=== PATIENT | male | born 1985 | race Caucasian/White ===

== ENCOUNTER 2016-09-10 15:51 | Emergency (ER) | payer BC, OTHER ==
[~2016-09-10 15:51] MED LIST: ROCURONIUM BROMIDE INJ 50 MG/5 ML VIAL IV ONE; SUCCINYLCHOLINE CHLORIDE INJ 200 MG/10 ML VIAL ONE
[2016-09-10] MEDS ORDERED: ALBUTEROL SULFATE 0.083% NEB 2.5 MG/3 ML AMPUL NEB ONE ×2 (16:06→17:39)
[2016-09-10 16:13] LABS: HEMATOCRIT 50.5 % (37.9-51.0); HGB HCT DIFFERENCE -2.5; MEAN CORPUSCULAR HEMOGLOBIN 28.8 pg (27.0-33.4); MEAN CORPUSCULAR HGB CONC 31.7 g/dL (32.0-36.0); MEAN CORPUSCULAR VOLUME 91 fl (80-97); RED BLOOD COUNT 5.55 10^6/uL (4.35-5.55); RED CELL DISTRIBUTION WIDTH 13.3 % (11.5-14.0); WHITE BLOOD COUNT 15.6 10^3/uL (4.0-10.5)
[2016-09-10 16:21] LABS: PARTIAL THROMBOPLASTIN TIME 23.5 SEC (23.5-35.8)
--- NOTE | 2016-09-10 16:22 | ER Document Report ---
ED General - General Stated Complaint: UNRESPONSIVE Notes: This is a 31-year-old male with no significant medical history who was found down while jogging. He was found about a mile from the home by a neighbor. Paramedics state he was unresponsive and posturing. He was notably hypertensive. After interviewing the , further history is that he has been told he had elevated blood pressure in the past but that it was "no big deal". He was not taking any medication for this condition. He did recently begin a jogging and weight loss program 3 days ago. She does not know him to use any drugs or supplements. 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 He is a former [employer]. - Related Data Allergies/Adverse Reactions: No Known Allergies Allergy (Verified 09/10/16 18:07) Past Medical History - Social History Smoking Status: Never Smoker Frequency of alcohol use: None Drug Abuse: None Lives with: Spouse/Significant other Family History: Other - Negative for history of aneurysms Review of Systems - Review of Systems -: Yes ROS unobtainable due to patient's medical condition Physical Exam - Vital signs Vitals: Pulse Ox 100 09/10/16 15:54 - General General appearance: Unresponsive - HEENT Head: Atraumatic -: bilateral: Nonreactive - 4 mm sluggish Mucous membranes: Dry Neck: Normal - Respiratory Breath sounds: Normal - Cardiovascular Rhythm: Regular, Tachycardia - Abdominal Inspection: Normal Distension: No distension - Back Back: Other - no trauma visible - Extremities General upper extremity: Normal inspection General lower extremity: Normal inspection - Neurological Neuro grossly intact: No - posturing - Skin Skin Temperature: Hot Skin Moisture: Dry Skin Color: Normal Course - Re-evaluation Re-evalutation: 09/10/16 16:39 CT findings reviewed with Dr. Manzano. Call placed to [facility] for Neurosurgery and ICU. updated of findings and allowed to visit at bedside. 09/10/16 16:41 09/10/16 16:[address] Waldo Parham, also discussed with Dr. Yuen (neurosurgery). 09/10/16 18:32 pt seen and examined just prior to helicopter transport. All drips have been stopped at this time due to low blood pressure- systolic 80's. Pt is critical due to intracranial hemorrhage and impending herniation. He is relatively stable for transport considering the critical nature of his underlying condition. - Vital Signs Vital signs: Temp Pulse Resp BP Pulse Ox 99.6 F 24 H 94/53 L 91 L 09/10/16 18:55 09/10/16 18:55 09/10/16 18:55 09/10/16 18:55 - Laboratory Result Diagrams: 09/10/16 15:45 09/10/16 15:45 Laboratory results interpreted by me: 09/10/16 09/10/16 09/10/16 15:45 15:45 15:45 WBC 15.6 H MCHC 31.7 L Band Neutrophils % 2 L Abs Neuts (Manual) 9.0 H Abs Lymphs (Manual) 5.3 H Carbon Dioxide 20 L Glucose 160 H Lactic Acid 6.3 H Creatine Kinase 347 H Urine Protein Urine Ketones Urine Ascorbic Acid Salicylates Acetaminophen 09/10/16 09/10/16 16:07 16:22 WBC MCHC Band Neutrophils % Abs Neuts (Manual) Abs Lymphs (Manual) Carbon Dioxide Glucose Lactic Acid Creatine Kinase Urine Protein 100 H Urine Ketones TRACE H Urine Ascorbic Acid 40 H Salicylates < 1.0 L Acetaminophen < 10 L - EKG Interpretation by Me EKG shows normal: Sinus rhythm Rate: Tachycardia Voltage: Consistant with LVH Procedures - Intubation Orotracheal Airway evaluation: Normal anatomy Mallampati Classification: Class 1 Medications: Etomidate, Succinylcholine Intubation method: Orotracheal Blade type: Tonny Blade size: 4 ETT size: 8.0 ETT secured at: Teeth ETT secured at (cm): 24 Breath Sounds after Intubation: Equal End tidal CO2 confirmed: Yes Intubation Complications: O2 saturation decreased - brief desaturaion with recover to 96% with adjustment of tube, 2nd look DSL by me to confirm tube correctly placed Critical Care Note - Critical Care Note Total time excluding time spent on procedures (mins): 60 Comments: management of hypertension, vent management, coordination of consultation and transfer Discharge - Discharge Clinical Impression: Intracranial hemorrhage Condition: Critical Disposition: [facility] Referrals: THO PAREDES NP [Primary Care Provider] - Follow up as needed
[2016-09-10 16:23] LABS: ALANINE AMINOTRANSFERASE 43 U/L (21-72); ALBUMIN 4.4 g/dL (3.5-5.0); ALKALINE PHOSPHATASE 77 U/L (38-126); ANION GAP 18 (5-19); ASPARTATE AMINO TRANSFERASE 47 U/L (17-59); BILIRUBIN,TOTAL 0.7 mg/dL (0.2-1.3); BLOOD UREA NITROGEN 15 mg/dL (7-20); CALCIUM 9.5 mg/dL (8.4-10.2); CARBON DIOXIDE 20 mmol/L (22-30); CHLORIDE 105 mmol/L (98-107); CREATINE KINASE 347 U/L (55-170); CREATININE RESULT 1.14 mg/dL (0.52-1.25); GLUCOSE 160 mg/dL (75-110); POTASSIUM 3.6 mmol/L (3.6-5.0); SODIUM 142.7 mmol/L (137-145); TOTAL PROTEIN 7.8 g/dL (6.3-8.2)
[2016-09-10] MEDS ORDERED: RINGERS SOLUTION,LACTATED 1,000 ML IV PRN (16:24)
[2016-09-10 16:34] LABS: CREATINE KINASE MB 2.48 ng/mL (<4.55)
[2016-09-10] MEDS ORDERED: NICARDIPINE HCL RTU, ISO-OS 200 ML IV PRN (16:34)
[2016-09-10 16:35] LABS: BAND NEUTROPHILS % (MANUAL) 2 % (3-5); BASOPHILS % (MANUAL) 0 % (0-2); EOSINOPHILS % (MANUAL) 3 % (0-6); LYMPHOCYTES % (MANUAL) 32 % (13-45); TOTAL CELLS COUNTED 100
[2016-09-10 16:36] LABS: TROPONIN I 0.052 ng/mL
[2016-09-10 16:40] LABS: OVALOCYTES SLIGHT; POIKILOCYTOSIS SLIGHT
[2016-09-10 16:40] LABS: ALCOHOL < 10 mg/dL (NONE DETECTED)
[2016-09-10 16:56] LABS: FREE T3 3.58 pg/mL (2.77-5.27)
[2016-09-10 17:10] LABS: THYROID STIMULATING HORMONE 1.06 uIU/mL (0.47-4.68)
[2016-09-10 17:25] LABS: APPEARANCE,URINE SLIGHTLY-CLOUDY; BILIRUBIN,URINE NEGATIVE (NEGATIVE); GLUCOSE, URINE NEGATIVE (NEGATIVE); KETONES,URINE TRACE mg/dL (NEGATIVE); LEUKOCYTE ESTERASE,URINE NEGATIVE (NEGATIVE); NITRITE,URINE NEGATIVE (NEGATIVE); PROTEIN,URINE 100 mg/dL (NEGATIVE); URINE SPECIFIC GRAVITY 1.015; UROBILINOGEN,URINE NEGATIVE mg/dL (<2.0)
[2016-09-10] MEDS ORDERED: ETOMIDATE INJ/PF 20 MG/10 ML SDV IV ONE (17:37)
[2016-09-10] MEDS ORDERED: ROCURONIUM BROMIDE INJ 50 MG/5 ML VIAL IV ONE (17:37)
[2016-09-10] MEDS ORDERED: ACETAMINOPHEN 325 MG SUPP.RECT PR ONE (17:37)
[2016-09-10 17:40] LABS: URINE BARBITURATES SCREEN NEGATIVE; URINE METHADONE SCREEN NEGATIVE; URINE OPIATES LOW NEGATIVE; URINE PHENCYCLIDINE SCREEN NEGATIVE
[2016-09-10] MEDS ORDERED: PROPOFOL 100 ML IV PRN (17:47)
[2016-09-10] MEDS ORDERED: MANNITOL 500 ML IV ONE (17:48)
[2016-09-10 19:18] VITALS: BP 94/53
--- NOTE | 2016-09-10 19:24 | EKG REPORT ---
SEVERITY:- ABNORMAL ECG - SINUS TACHYCARDIA PROBABLE LEFT VENTRICULAR HYPERTROPHY : Confirmed by: Chuyita Nj MD 10-Sep-2016 19:22:18
== END 2016-09-10 19:17 | disposition short-term general hospital (02) ==
LOC: ER 15:51
PROC: 0BH17EZ Insertion of Endotracheal Airway into Trachea, Via Natural or Artificial Opening (ICD-10-PCS; principal; 2016-09-10)
DX: I61.0 Nontraumatic intracerebral hemorrhage in hemisphere, subcortical (principal); I10 Essential (primary) hypertension; R00.0 Tachycardia, unspecified; I95.9 Hypotension, unspecified
CPT/HCPCS: 93005; 94640; 99291; 51702; 96375; 96365; 36415; 87040; 84439; 82553; 82962; 80307 ×4; 82550; 84443; 85025; 85610; 85730; 87077; 80053; 81001; 84484; 87186; 84481; 83605; 71010; 70450; 93010; 31500; J3490 ×4; J2704; J0330; J2150; J7120